=== PATIENT | female | born 1950 | race Two or more races ===

== ENCOUNTER → 2018-01-07 | Outpatient (CLI) | payer OTHER ==
[~2018-01-07] MED LIST: AMBIEN5 MG; CARDURA XL4 MG; CARDURA XL4 MG/BOTTL PO; DIOVAN160 M1; ENALAPRIL HCTZ PO; GLIMEPIRIDE1 MG PO; IBUPROFEN800 MG PO; MEDROL4 MG PO; NASONEB NASAL1 EACH MC; NASONEX17 GM NS; ORPH100T PO; SYNTHROID75 MCG; SYNTHROID75 MCG PO; TOPROL XL50 MG PO; VYTORIN 10-40 M1 TAB PO
== END | disposition home or self-care (01) ==
LOC: MAMO-SONO 11:55
DX: Z12.31 Encounter for screening mammogram for malignant neoplasm of breast (principal); Z87.898 Personal history of other specified conditions; I10 Essential (primary) hypertension; E78.89 Other lipoprotein metabolism disorders; M54.5 Low back pain; E55.9 Vitamin D deficiency, unspecified; E11.9 Type 2 diabetes mellitus without complications; E11.51 Type 2 diabetes mellitus with diabetic peripheral angiopathy without gangrene; E11.42 Type 2 diabetes mellitus with diabetic polyneuropathy; G62.89 Other specified polyneuropathies; F41.8 Other specified anxiety disorders; E03.8 Other specified hypothyroidism; I11.9 Hypertensive heart disease without heart failure; N63.10 Unspecified lump in the right breast, unspecified quadrant; N63.20 Unspecified lump in the left breast, unspecified quadrant

== ENCOUNTER 2018-02-25 18:24 | Emergency (ER) | payer OTHER ==
[~2018-02-25] VITALS: Ht 160 cm; Wt 74.8 kg
[2018-02-25] MEDS ORDERED: LIPITOR20 MG (18:42)
== END 2018-02-25 19:06 | disposition home or self-care (01) ==
LOC: ER 18:24
DX: I10 Essential (primary) hypertension (principal); M25.512 Pain in left shoulder

== ENCOUNTER 2018-10-09 12:29 | Outpatient (CLI) | payer OTHER ==
[~2018-10-09 12:29] MED LIST changes: +LIPITOR20 MG
== END 2018-10-09 14:09 | disposition home or self-care (01) ==
LOC: RAD 12:29
DX: S46.212A Strain of muscle, fascia and tendon of other parts of biceps, left arm, initial encounter (principal); M54.5 Low back pain

== ENCOUNTER 2019-04-22 13:07 | Outpatient (CLI) | payer OTHER | END 2019-04-22 13:30 | disposition home or self-care (01) | LOC: NUCLEAR 13:07 | DX: I87.2 Venous insufficiency (chronic) (peripheral) (principal) ==

== ENCOUNTER 2019-06-01 18:56 | Emergency (ER) | payer OTHER ==
[~2019-06-01] VITALS: Ht 162.6 cm; Wt 72.6 kg
[2019-06-01] MEDS ORDERED: AVAPRO300 MG (20:28)
[2019-06-01] MEDS ORDERED: SINGULAIR10 MG (20:29)
[2019-06-01] MEDS ORDERED: LUMIGAN2.5 M1 (20:29)
[2019-06-01] MEDS ORDERED: MICROZIDE12.5 MG (20:29)
[2019-06-01] MEDS ORDERED: XOPENEX0.63 MG/3 (20:30)
[2019-06-01] MEDS ORDERED: SYMBICORT 16010.2 GM (20:30)
== END 2019-06-01 23:19 | disposition home or self-care (01) ==
LOC: ER 18:56
DX: R42 Dizziness and giddiness (principal)

== ENCOUNTER 2020-08-27 14:31 | Emergency (ER) | payer OTHER ==
[~2020-08-27] VITALS: Ht 160 cm; Wt 74.8 kg
[~2020-08-27 14:31] MED LIST changes: +AVAPRO300 MG; +LUMIGAN2.5 M1; +MICROZIDE12.5 MG; +SINGULAIR10 MG; +SYMBICORT 16010.2 GM; +XOPENEX0.63 MG/3
== END 2020-08-27 18:54 | disposition home or self-care (01) ==
LOC: ER 14:31
DX: R00.2 Palpitations (principal)

== ENCOUNTER 2021-10-07 13:59 | Outpatient (CLI) | payer OTHER | END 2021-10-07 14:00 | disposition home or self-care (01) | LOC: RAD 13:59 | PROVIDERS: ATTEND Internal Medicine Pulmonary Disease | DX: J30.1 Allergic rhinitis due to pollen (principal); J45.41 Moderate persistent asthma with (acute) exacerbation ==

== ENCOUNTER 2022-10-12 12:10 | Outpatient (CLI) | payer OTHER | END 2022-10-12 12:16 | disposition home or self-care (01) | LOC: RAD 12:10 | PROVIDERS: ATTEND Ophthalmology | DX: H25.011 Cortical age-related cataract, right eye (principal); Z98.41 Cataract extraction status, right eye ==

== ENCOUNTER 2022-12-06 11:00 | Inpatient (IN) | payer OTHER ==
[~2022-12-06] VITALS: Ht 162.6 cm; Wt 72.6 kg
--- NOTE | 2022-12-06 11:17 | NUR ---
PTE REFIER QUE SE LUCIO EN [place] Y TIENE DOLOR DE ESPALDA BAJO Y [facility]OLOR [facility]
--- NOTE | 2022-12-06 13:18 | NUR ---
PTE ALERTA Y ORIENTADA X3. SE ADMINSTRA MEDICAMENTO NAYANA ORDEN MEDICA Y BAJO MEDIDAS ASEPTICAS. SE NOTIFICAN XRAYS.
--- NOTE | 2022-12-06 16:46 | NUR ---
PTE FEMENINA ALERTA Y ORIENTADA X3 ES RE-EVALUADA POR . SE ORIENTA SOBRE ORDENES DE [place] REFIERE COMPRENDER. SE COLECTAN MUESTRAS DE LABORATORIOS Y SE CANALIZA VENA BAJO MEDIDAS ASEPTICAS. SE UBICA PTE EN HECTOR NIVEL MAS BAJO CON BARANMDAS ELEVADAS Y FRENOS COLOCADOS POR SEGURIDAD. PENDIENTE JHONY DE MUESTRA U/A PTE CON ENVASE DEBIDAMENTE ORIENTADA.
== END 2022-12-14 15:42 | disposition home or self-care (01) | DRG 181 ==
LOC: ER 11:00 → MEDI 20:04 → MEDJ 20:04 → SEC-K 20:04 → MEDJ 12-07 16:29
PROVIDERS: ADMIT Internal Medicine; ATTEND Internal Medicine
PROC: BB24ZZZ Computerized Tomography (CT Scan) of Bilateral Lungs (ICD-10-PCS; 2022-12-06)
PROC: BP2 Imaging, Non-Axial Upper Bones, Computerized Tomography (CT Scan) (ICD-10-PCS; 2022-12-06)
PROC: 0W993ZZ Drainage of Right Pleural Cavity, Percutaneous Approach (ICD-10-PCS; principal; 2022-12-07)
PROC: 0FB03ZX Excision of Liver, Percutaneous Approach, Diagnostic (ICD-10-PCS; 2022-12-08)
PROC: BW21YZZ Computerized Tomography (CT Scan) of Abdomen and Pelvis using Other Contrast (ICD-10-PCS; 2022-12-08)
PROC: 05HN33Z Insertion of Infusion Device into Left Internal Jugular Vein, Percutaneous Approach (ICD-10-PCS; 2022-12-08)
DX: C34.91 Malignant neoplasm of unspecified part of right bronchus or lung (principal); C77.1 Secondary and unspecified malignant neoplasm of intrathoracic lymph nodes; C78.7 Secondary malignant neoplasm of liver and intrahepatic bile duct; C78.2 Secondary malignant neoplasm of pleura; J91.0 Malignant pleural effusion; C79.51 Secondary malignant neoplasm of bone; E87.1 Hypo-osmolality and hyponatremia; I10 Essential (primary) hypertension; E03.8 Other specified hypothyroidism; E11.9 Type 2 diabetes mellitus without complications

== ENCOUNTER 2022-12-22 14:00 | Inpatient (IN) | payer OTHER ==
[~2022-12-22] VITALS: Ht 162.6 cm; Wt 72.6 kg
--- NOTE | 2022-12-22 14:19 | NUR ---
SE RECIBE PTE ALERTA ORIENTADA X3 EN AMBULANCIA EN COMPANIA DE PARAMEDICOS LA CUAL REFIERE PRESENTA,DOLOR DE PECHO,SOB,DOLOR ABDOMINAL,VOMITOS X1 DESDE HOY EN LA MANANA.PTE DE .SE OBSERVA MEDPORT EN LADO NADIYA DE PECHO VENDAJES LIMPIOS Y SECO.SE CHADD EKG SE PRESENTA A EL CUAL ORDENA COLOCAR EN OBSERVACION #10.SE CHADD S/V Y SE UBICA.
[2022-12-22] MEDS ORDERED: HYDROCHLOROTHIA25 MG PO (14:23)
[2022-12-22] MEDS ORDERED: IRBESARTAN300 MG PO (14:23)
[2022-12-22] MEDS ORDERED: AMLODIPINE BESY10 MG PO (14:23)
[2022-12-22] MEDS ORDERED: FAMOTIDINE20 MG PO (14:24)
[2022-12-22] MEDS ORDERED: LORATADINE10 MG PO (14:24)
[2022-12-22] MEDS ORDERED: ATORVASTATIN CA20 MG PO (14:24)
[2022-12-22] MEDS ORDERED: BENZONATATE150 MG PO (14:26)
--- NOTE | 2022-12-22 15:27 | NUR ---
PTE EVALUADO POR EL DR [place] QUIEN ORDENA EL [place]. MR Jd BLANK ORIENTA SOBRE EL TX ORDENADO, LO CUAL REFIERE ENTENDER, REALIZA PRUEBAS DE LABORATORIO Y ADMINISTRA MEDICAMENTO NAYANA ORDEN MEDICA Y SIGUIENDO MEDIDAS ASEPTICAS.
--- NOTE | 2022-12-22 15:30 | NUR ---
ABG NOTIFICADOS A PERSONAL DE TERAPIA RESPIRATORIA DE TURNO (SPARROW).
== END 2022-12-28 16:11 | disposition home or self-care (01) | DRG 194 ==
LOC: ER 14:00 → SURG 18:55 → SEC-K 18:55 → SURG 12-23 10:12
PROVIDERS: ADMIT Internal Medicine; ATTEND Internal Medicine
PROC: 3E0F7GC Introduction of Other Therapeutic Substance into Respiratory Tract, Via Natural or Artificial Opening (ICD-10-PCS; 2022-12-23)
PROC: 0W993ZZ Drainage of Right Pleural Cavity, Percutaneous Approach (ICD-10-PCS; principal; 2022-12-25)
DX: J18.8 Other pneumonia, unspecified organism (principal); C34.91 Malignant neoplasm of unspecified part of right bronchus or lung; C78.2 Secondary malignant neoplasm of pleura; J91.0 Malignant pleural effusion; E87.1 Hypo-osmolality and hyponatremia; J45.40 Moderate persistent asthma, uncomplicated; I10 Essential (primary) hypertension; E03.8 Other specified hypothyroidism

== ENCOUNTER 2023-01-09 12:23 | Emergency (ER) | payer OTHER ==
[~2023-01-09] VITALS: Ht 165.1 cm; Wt 68.0 kg
[~2023-01-09 12:23] MED LIST changes: +AMLODIPINE BESY10 MG PO; +ATORVASTATIN CA20 MG PO; +BENZONATATE150 MG PO; +FAMOTIDINE20 MG PO; +HYDROCHLOROTHIA25 MG PO; +IRBESARTAN300 MG PO; +LORATADINE10 MG PO
== END 2023-01-09 22:19 | disposition home or self-care (01) ==
LOC: ER 12:23
DX: R31.9 Hematuria, unspecified (principal); Z88.8 Allergy status to other drugs, medicaments and biological substances